=== PATIENT | male | born 1990 | race Caucasian/White ===

== ENCOUNTER 2020-07-23 07:06 | Emergency (ER) | payer OTHER ==
[2020-07-23] MEDS ORDERED: FEXOFENADINE H180 M1 PO (07:24)
[2020-07-23 07:35] LABS: EOS # 0.1 (0.04-0.40); EOS % 2.5 % (0.0-4.0); HEMATOCRIT 45.6 % (42.0-52.0); LYMPH# 1.1 (1.50-4.00); MEAN CELL VOLUME 87 fl (78-100); MEAN CORPUSCULAR HEMOGLOBIN 31 pg (27-31); MEAN CORPUSCULAR HGB CONC 35 g/dL (33-37); MEAN PLATELET VOLUME 9.8 fl (7.4-10.4); MONO # 0.4 (0.20-0.80); NEU # 2.8 (1.40-6.50); PLATELET COUNT 149 K/mm3 (130-400); RED BLOOD COUNT 5.23 M/mm3 (4.20-5.60); RED CELL DISTRIBUTION WIDTH 12.9 % (11.5-14.5); WHITE BLOOD COUNT 4.4 K/mm3 (4.8-10.8)
[2020-07-23 07:42] LABS: ALBUMIN 4.4 g/dL (3.5-5.0); POTASSIUM 3.9 mmol/L (3.5-5.1); SODIUM 140 mmol/L (136-145)
[2020-07-23 07:44] LABS: GLUCOSE 97 mg/dL (75-110); TOTAL PROTEIN 7.2 g/dL (6.4-8.3)
[2020-07-23 07:45] LABS: CARBON DIOXIDE 26 mmol/L (22-29)
[2020-07-23 07:46] LABS: TOTAL BILIRUBIN 0.8 mg/dL (0.2-1.2)
[2020-07-23 07:47] LABS: ALCOHOL IN-HOUSE < 10 mg/dL (<10)
[2020-07-23 07:49] LABS: AST-SGOT 30 U/L (5-34)
[2020-07-23 07:51] LABS: ALT/SGPT 70 U/L (0-55)
[2020-07-23 09:51] LABS: URINE APPEARANCE CLEAR; URINE BILIRUBIN NEGATIVE (NEGATIVE); URINE BLOOD NEGATIVE (NEGATIVE); URINE COLOR YELLOW; URINE GLUCOSE NEGATIVE (NEGATIVE); URINE KETONE NEGATIVE (NEGATIVE); URINE LEUKOCYTE ESTERASE NEGATIVE (NEGATIVE); URINE NITRATE NEGATIVE (NEGATIVE); URINE PROTEIN(semi-quant) NEGATIVE (NEGATIVE); URINE UROBILINOGEN NORMAL (NORMAL); URINE WBC 0 /hpf (0-3)
[2020-07-23 10:07] VITALS: BP 138/100
== END 2020-07-23 10:08 | disposition home or self-care (01) ==
LOC: ED 07:06
PROVIDERS: Physician Assistant
DX: R51.9 Headache, unspecified (principal); M54.2 Cervicalgia; R07.89 Other chest pain; V43.52XA Car driver injured in collision with other type car in traffic accident, initial encounter
CPT/HCPCS: 90715; J1885; J3010; L0172; Q9967